=== PATIENT | male | born 1965 | race Caucasian/White ===

== ENCOUNTER 2020-02-04 00:43 | Emergency (ER) | payer MEDICARE, SELFPAY ==
[2020-02-04 00:29] VITALS: BP 189/100; PULSE 130; RESP 16; TEMP 36.8; O2SAT 95; BMI 26.9
[2020-02-04 00:59] VITALS: BP 160/99; PULSE 111; RESP 18; O2SAT 96
--- NOTE | 2020-02-04 01:07 | HMH.EDGENADL ---
ED Disposition Clinical Impression: Laryngeal spasm Disposition: Home, Self-Care Condition on Discharge: Good Instructions: DI for Cough -- Adult Additional Instructions: see pcp for follow up Referrals: Provider,Referral, [Primary Care Provider] - - Critical Care Critical Care Time: No Attestation: On 02/04/20, the high probability of a clinically significant, sudden or life threatening deterioration of the following system(s) required my full and direct attention, intervention and personal management. The time I documented below is in addition to time spent performing reported procedures but includes the following listed in this critical care notation. Medical Decision Making - Medical Records Medical records reviewed: Yes: I reviewed the patient's medical records. - Jluis Inquiry Pt receiving controlled substance: No Vital Signs: 02/04/20 00:29 02/04/20 00:59 Temperature 98.3 F Temperature Source Oral Pulse Rate [Right] 130 H 111 H Respiratory Rate 16 18 Blood Pressure [Right Arm] 189/100 H 160/99 H Blood Pressure Mean [Right Arm] 129 119 Blood Pressure Source [Right Arm] Automatic Cuff Manual Cuff/ Auscultation Blood Pressure Position [Right Arm] Sitting 02 Sat by Pulse Oximetry 95 96 Oxygen Delivery Method Room Air Room Air Orders (Tests/Meds): ED MEDICATIONS Discontinued Medications Generic Name Dose Route Start Last Admin Trade Name Freq PRN Reason Stop Dose Admin Methylprednisolone Sodium Succinate 125 mg 02/04/20 00:43 02/04/20 00:52 Solu-Medrol 125mg/2ml Vial IV 02/04/20 00:44 125 mg ONCE ONE Administration ORDERS Category Date Time Status Chest XR 2 view (NOT portable) [XR chest 2V] Stat Exams 02/04/20 01:11 Taken - Radiology Data #1 Image(s): Chest Image Reviewed: Yes I reviewed the patient's radiology image Preliminary Findings: Normal/NAD General Adult HPI - General Chief complaint: PAIN Stated complaint: PIZZA STUCK IN THROAT Time Seen by Provider: 02/04/20 01:00 Mode of Arrival: EMS Source of Information: Patient, Medical Record Limitations: No Limitations Description of Symptoms (Recalled from ER Triage Doc. by RN): PT advises he was eating pizza and took a bite and feels like it went down the wrong way Pt arrives A&O times 3 and able to move air but is coughing and says he feels like there is something stuck - History of Present Illness HPI narrative: after eating piece of of pizza had feeling stuck -able to speak and drink water Onset (ago): hour(s) Location: chest Severity: moderate Associated symptoms: denies other symptoms Treatments prior to arrival: none - Related Data Home Medications Medication Instructions Recorded Confirmed No Known Home Medications 02/04/20 02/04/20 Allergies Allergy/AdvReac Type Severity Reaction Status Date / Time No Known Allergies Allergy Verified 02/04/20 01:05 [facility] History - Hepatitis A Screen Drug use history?: No High risk sexual behaviors?: No History of sexually transmitted infection?: No Currently employed?: No Childcare worker?: No Do you have indoor plumbing?: Yes Do you have electricity?: Yes Attestation statement:: This patient has been screened for Hepatitis A risk factors. I have reviewed the patient's past medical history: Yes ROS Obtained: Yes All systems reviewed & no additional complaints - Constitutional Constitutional: Denies fever(s) - Eyes Eyes: Denies change in vision - ENT Ears, Nose, Mouth, and Throat: Denies sore throat - Cardiovascular Cardiovascular: Denies chest pain - Respiratory Respiratory: Yes as per HPI, Yes shortness of breath, Yes cough - Gastrointestinal Gastrointestingal: Denies: abdominal pain - Genitourinary Male Genitourinary: Denies hematuria - Musculoskeletal Musculoskeletal: Denies joint pain - Integumentary/Breasts Skin/Breast: Denies rash - Neurologic Neurologic: Denies focal weakn
--- NOTE | 2020-02-04 01:11 | XR_ITS ---
PROCEDURE: XR CHEST 2V CLINICAL HISTORY: choked on pizza earlier Difficulty swallowing, choking COMPARISON: No exams were available for comparison FINDINGS: The cardiomediastinal silhouette and pulmonary vascularity are within normal limits. The lungs are clear without infiltrates, suspicious nodules, or pleural effusions. No acute bony abnormalities. IMPRESSION: No acute findings. Dictated by: Michael Browne MD 02/04/2020 05:43 Michael Browne MD in [place] 02/04/2020 05:43
[2020-02-04 02:06] VITALS: BP 181/134; PULSE 108; RESP 18; TEMP 36.8; O2SAT 96
== END 2020-02-04 02:12 | disposition home or self-care (01) ==
PROVIDERS: Emergency Provider Emergency Medicine
DX: J38.5 Laryngeal spasm (principal)
CPT/HCPCS: 71046; 96375; 99282

== ENCOUNTER 2023-11-14 09:04 | Emergency (ER) | payer MEDICARE, SELFPAY ==
[2023-11-14 09:15] VITALS: BP 134/78; PULSE 115; RESP 19; TEMP 36.6; O2SAT 97; BMI 23.1
--- NOTE | 2023-11-14 09:29 | EXP.UTC ---
Discharge Plan Disposition Patient Disposition: Home, Self-Care Condition: Good Prescriptions Prescriptions: New methylprednisolone 4 mg Tablets,Dose Pack 4 mg PO DIRECTED 6 Days Qty: 21 0RF Rx Instructions: Take 1 pack as directed for 6 days cyclobenzaprine 10 mg Tablet 10 mg PO BID PRN (Reason: Muscle Spasm) Qty: 20 0RF Referrals Follow up/Referrals: Provider,Referral, MD [Primary Care Provider] - See instructions Activity Restrictions/Add. Instructions Additional Instructions/Restrictions: Go home and rest. It would be best if you rested tomorrow too. No heavy lifting. No twisting. Take the oral medications as directed. The muscle relaxer (cyclobenzaprine--Flexeril) will make you drowsy, so don't drive or operate heavy machinery after taking it. Don't start the oral steroids (medrol dose pack) until tomorrow, since you had the shots in here today. Follow up with your regular doctor. GO TO THE ER FOR ANY WORSENING SYMPTOMS OR CONCERN, ESPECIALLY BOWEL OR BLADDER ISSUES, SADDLE AREA NUMBNESS, FEVER, ETC Clinical Impressions Clinical Impression: Neck pain, Left shoulder pain, Upper back pain Instructions Patient Instructions: DI for Neck Pain, Cyclobenzaprine, Methylprednisolone, Ketorolac Injection, Dexamethasone Injection Discharge ED Provider: Ayaan Ring [facility] General Stated complaint: pain from neck to mid back Time Seen by Provider: 11/14/23 09:29 History of Present Illness Provider Complaint: He states that since yesterday he has had had left shoulder pain and left sided neck pain. He denies any chest pain. He states that he pulled a muscle in his shoulder and it is causing his pain. He states that certain movements of his neck and shoulder make his pain worse. Related Data Previous Rx's Medication Instructions Recorded cyclobenzaprine 10 mg tablet 10 mg PO BID PRN Muscle Spasm #20 11/14/23 tabs methylprednisolone 4 mg tablets in 4 mg PO DIRECTED 6 days #21 tabs 11/14/23 a dose pack Allergies Allergy/AdvReac Type Severity Reaction Status Date / Time Penicillins Allergy Verified 11/14/23 09:33 [facility] Disclaimer: The information contained in this section may have been updated after the patient was seen, as this information can be updated by other users. Social History Smoking Status: Never smoker alcohol intake: never current occupational status: employed Travel in the last 8 weeks: None ROS Obtained: Yes All systems reviewed & no additional complaints except as documented Constitutional Constitutional: Denies chills and Denies fever(s) Eyes Eyes: Denies eye discharge ENT Ears, Nose, Mouth, and Throat: Denies dizziness, Denies otalgia, Reports neck pain and Denies sore throat Cardiovascular Cardiovascular: Denies chest pain Respiratory Respiratory: Denies shortness of breath, Denies chest congestion, Denies cough, Denies stridor and Denies wheezing Gastrointestinal Gastrointestingal: Denies nausea or vomiting Musculoskeletal Musculoskeletal: Reports as per HPI, Reports back pain and Reports neck pain Integumentary/Breasts Skin/Breast: Denies rash Neurologic Neurologic: Denies dizziness and Denies paresthesias Allergic/Immunologic Allergic/Immunologic: Denies wheezing Physical Exam General General appearance: alert and in no apparent distress Head Head exam: atraumatic, normocephalic and normal inspection Eye Eye exam: Present normal appearance, PERRL and EOMI ENT ENT exam: Present normal exam, normal oropharynx, mucous membranes moist, TM's normal bilaterally and normal external ear exam Neck Neck exam: Present normal inspection, full ROM and trachea midline; Absent meningismus or lymphadenopathy Chest Chest inspection: Present normal inspection and symmetric chest wall rise; Absent tenderness Respiratory Respiratory exam: Present normal lung sounds bilaterally; Absent respiratory distress Cardiovascular Cardiovascular exam: Present regular rate and normal rhythm; Absent JVD Abdominal Exam Abdominal exam: Present soft and normal bowel sounds; Absent distention, tenderness or guarding Extremities Exam Extremities exam: Present normal inspection, full ROM and normal capillary refill; Absent calf tenderness Back Exam Back exam: Present normal inspection; Absent tenderness Neurological Exam Neurological exam: Present alert, oriented X3, CN II-XII intact, normal gait and reflexes normal; Absent motor sensory deficit Psychiatric Psychiatric exam: Present normal affect and normal mood Skin Skin exam: Present warm, dry, intact and normal color Lymphatic Lymphatic Findings: no adenopathy Medical Decision Making Medical Records Medical records reviewed: No I reviewed the patient's medical records. Jluis Inquiry Pt receiving controlled substance: No
[2023-11-14] MEDS: DEXAMETHASONE 4MG/ML 1ML VIAL 8 MG IM (10:04)
[2023-11-14] MEDS: KETOROLAC 60MG/2ML VIAL 30 MG IM (10:04)
[2023-11-14 10:30] VITALS: BP 134/78; PULSE 115; RESP 19; TEMP 36.6; O2SAT 97
== END 2023-11-14 10:36 | disposition home or self-care (01) ==
PROVIDERS: Emergency Provider Nurse Practitioner Family
DX: M54.2 Cervicalgia (principal); M25.512 Pain in left shoulder; M54.6 Pain in thoracic spine
CPT/HCPCS: 96372; 99204; 99212; G0463